=== PATIENT | male | born 1980 | race Caucasian/White ===

== ENCOUNTER 2018-05-16 08:51 | Emergency (ER) | payer MEDICARE ==
[~2018-05-16] VITALS: Ht 172.7 cm; Wt 102.9 kg
[2018-05-16 09:04] VITALS: Ht 172.7 cm; Wt 102.9 kg
[2018-05-16] MEDS ORDERED: PREDNISONE50 MG PO (10:16)
[2018-05-16] MEDS ORDERED: VENTOLIN HFA18 GM INH (10:16)
[2018-05-16 10:31] VITALS: BP 124/79
== END 2018-05-16 10:32 | disposition home or self-care (01) ==
LOC: D.ER 08:51
DX: J45.901 Unspecified asthma with (acute) exacerbation (principal); F17.200 Nicotine dependence, unspecified, uncomplicated